=== PATIENT | male | born 1995 | race Caucasian/White ===

== ENCOUNTER 2025-02-05 19:18 | Emergency (ER) | payer OTHER ==
[~2025-02-05] VITALS: Ht 175.3 cm; Wt 118.0 kg
--- NOTE | 2025-02-05 20:22 | DVH ---
CLINICAL INDICATION: 3rd digit injury TECHNIQUE: 4 radiographic views of the left hand were obtained. Comparison: None FINDINGS/IMPRESSION: Bony fingers appear intact and in normal alignment. No fracture dislocation. No radiopaque foreign body. HS:Y
[2025-02-05] MEDS ORDERED: IBUP-1455 PO (20:36)
--- NOTE | 2025-02-05 20:37 | ED.PDOC ---
Back pain HPI HPI Comments PATIENT C/O PAIN TO 3RD DIGIT OF LEFT HAND S/P SMASHING IT ON A DOOR AT WORK. SWELLING NOTED TO FINGER. + csm Chief Complaint: Upper Extremity Time Seen by MD: 19:50 Reviewed Notes: Nurses Notes, Medications, Allergies Allergies: Coded Allergies: Doxycycline (Verified Allergy, Unknown, 02/05/25) Ziprasidone (Verified Allergy, Unknown, 02/05/25) Home Meds Active Scripts Ibuprofen Micronized (Ibuprofen) 800 Mg Tab, 800 MG PO TID PRN for 5 Days, #15 TAB Prov:LINDA SERRANO [employer]MENT [employer] 02/05/25 Information Source: Patient Mode of Arrival: Ambulatory Past Medical History PAST MEDICAL HISTORY: Denies Surgical History: Denies all surgeries Family History Family History: Reviewed,noncontributory to illness Social History Smoker: Non-Smoker Alcohol: Denies ETOH Use Drugs: Denies Drug Use Constitutional: denies: chills, diaphoresis, fatigue, fever, malaise, sweats, weakness, others EENTM: denies: blurred vision, double vision, ear bleeding, ear discharge, ear drainage, ear pain, ear ringing, eye pain, eye redness, hearing loss, mouth pain, mouth swelling, nasal discharge, nose bleeding, nose congestion, nose pain, photophobia, tearing, throat pain, throat swelling, voice changes, others Respiratory: denies: cough, hemoptysis, orthopnea, SOB at rest, shortness of breath, SOB with excertion, stridor, wheezing, others Cardiovascular: denies: chest pain, dizzy spells, diaphoresis, Dyspnea on exertion, edema, irregular heart beat, left arm pain, lightheadedness, palpitations, PND, syncope, others Gastrointestinal: denies: abdomen distended, abdominal pain, blood streaked bowels, constipated, diarrhea, dysphagia, difficulty swallowing, hematemesis, melena, nausea, poor appetite, poor fluid intake, rectal bleeding, rectal pain, vomiting, others Genitourinary: denies: burning, dysuria, flank pain, frequency, hematuria, incontinence, penile discharge, penile sore, pain, testicle pain, testicle swell ing, urgency, others Neurological: denies: dizziness, fainting, headache, left sided numbness, left sided weakness, numbness, paresthesia, pre-existing deficit, right sided numbness, right sided weakness, seizure, speech problems, tingling, tremors, weakness, others Musculoskeletal: reports: joint pain Integumetry: reports: bruises; denies: change in color, change in hair/nails, dryness, laceration, lesions, lumps, rash, wounds, others Allergic/Immunocompromised: denies: Difficulty Healing, Frequent Infections, Hives, Itching, others Hematologic/Lymphatic: denies: anemia, blood clots, easy bleeding, easy bruising, swollen glands, others Endocrine: denies: excessive hunger, excessive sweating, excessive thirst, excessive urination, flushing, intolerance to cold, intolerance to heat, unexplained weight gain, unexplained weight loss, others Psychiatric: denies: anxiety, bipolar disorder, depression, hopeless, panic disorder, schizophrenia, sleepless, suicidal, others Physical Exam General Appearance: No Apparent Distress, Normal HEENT: Pharynx Normal Neck: Full Range of Motion, Non-Tender Respiratory: Lungs Clear, No Respiratory Distress, Normal Breath Sounds Cardiovascular: No Murmur, Normal Peripheral Pulses, Regular Rate/Rhythm Breast Exam: Deferred Gastrointestinal: Non Tender, Soft Genitalia: Deferred Pelvic: Deferred Rectal: Deferred Extremities: Normal capillary refill, Normal range of motion, Non-tender Musculoskeletal : Location: Left Extremity Location: Finger 3 (Mild to moderate edema distal phalanx with trace ecchymosis no noted abrasion or laceration strength sensory motion intact cap refill less than 3 seconds) Apperance: Normal Neurologic: Alert, No Motor Deficits, Normal Affect, Normal Mood, No Sensory Deficits Cerebellar Function: Normal Reflexes: Normal Skin: Dry, Normal Color, Warm Lymphatic: No Adenopathy Was a procedure done? Was a procedure done?: No Back Pain Differential Dx Differential Diagnosis: Fracture, Musculoskeletal Pain X-Ray, Labs, Meds, VS Vital Signs Date Time Temp Pulse Resp B/P (MAP) Pulse Ox O2 Delivery O2 Flow Rate FiO2 02/05/25 19:48 98.1 98 18 153/75 (101) 95 98.1 X-Ray, Labs, Meds, VS Comment Left hand x-ray shows no acute fractures subluxations dislocations or osseous lesions. Likely a contusion. Patient placed in finger splint. Script trial of ibuprofen advised to take medication as prescribed side effects discussed. Advised on rice. Advised to follow up with employee health in his PCP within 2- 3 days ER return precautions given patient indicates understanding and agrees with discharge plan of care. Time of 1ST Reevaluation: 19:10 Reevaluation 1ST: Unchanged Time of 2ND Reevaluation: 20:34 Reevaluation 2ND: Improved Patient Education/Counseling: Diagnosis, Treatment, Prognosis, Need For Follow Up Family Education/Counseling: No Family Present SEPSIS Sepsis Screen Date sepsis recognized/suspect: Feb 05, 2025 Time Sepsis recognized/suspect: 1949 Recent Procedure: No On Antibiotic Therapy: No Respiratory Rate >20: No Heart Rate >90: Yes Temp<36 C (96.8 F) or >38.3 C: No SBP <90 or MAP <65 mmHG: No New Acute Mental Status Change: No Is the patient on CPAP, BIPAP,: No Physician Orders L Hand 3v Xray (02/05/25 19:51) Splints (02/05/25 ) Vital Signs Date Time Temp Pulse Resp B/P (MAP) Pulse Ox O2 Delivery O2 Flow Rate FiO2 02/05/25 19:48 98.1 98 18 153/75 (101) 95 98.1 Departure 1 Departure Time of Disposition: 20:34 Impression: Primary Impression: Contusion of middle finger without damage to nail Qualified Codes: S60.032A - Contusion of left middle finger without damage to nail, initial encounter Disposition: 01 HOME / SELF CARE / HOMELESS Condition: Stable e-Prescriptions Ibuprofen Micronized (Ibuprofen) 800 Mg Tab 800 MG PO TID PRN for 5 Days, #15 TAB Prov: LINDA SERRANO 02/05/25 Discharged With: Self Critical Care Note Critical Care Time?: No Stability Stability form required: LINDA Frias Feb 05, 2025 20:37
[2025-02-05 20:46] VITALS: BP 146/78; PULSE 97; RESP 18; TEMP 98.8; O2SAT 97
== END 2025-02-05 21:03 | disposition home or self-care (01) ==
LOC: ER 19:18
DX: S60.032A Contusion of left middle finger without damage to nail, initial encounter (principal); Z88.1 Allergy status to other antibiotic agents; W23.0XXA Caught, crushed, jammed, or pinched between moving objects, initial encounter; Y93.89 Activity, other specified; Y92.89 Other specified places as the place of occurrence of the external cause; Y99.8 Other external cause status
CPT/HCPCS: 29130; 73130